=== PATIENT | female | born 1990 | race American Indian/Alaskan Native ===

== ENCOUNTER 2017-07-11 20:25 | Outpatient (CLI) | payer OTHER ==
[2017-07-11 23:44] VITALS: BP 127/70
[2017-07-12] MEDS ORDERED: VISTARIL PO PRN (02:13)
--- NOTE | 2017-07-12 02:38 | Ultrasound Report ---
FINAL REPORT PROCEDURE: US OB LIMITED TECHNIQUE: Real-time limited sonographic examination was performed for evaluation of size, position, heartbeat, fluid volume for each fetus with image documentation (1 or more fetuses). CPT 76916 HISTORY: MARTHA, well-being COMPARISON: No prior studies are available for comparison. FINDINGS: Amniotic fluid index is 6 centimeters. This is below the lower limits of normal. heart rate is 145 beats per minute. IMPRESSION: There is oligohydramnios.
--- NOTE | 2017-07-12 02:42 | Ultrasound Report ---
FINAL REPORT PROCEDURE: US OB BPP WO NON-STRESS TECHNIQUE: Real-time limited sonographic examination was performed for evaluation of size, position, heartbeat, fluid volume for each fetus with image documentation (1 or more fetuses). CPT 83777 HISTORY: MARTHA, well-being COMPARISON: No prior studies are available for comparison. FINDINGS: biophysical profile: breathing movements: 2. movements: 2. posterior and tone: 2. Qualitative amniotic fluid volume: 2. Total score: 8/8. heart rate 145 beats per minute. IMPRESSION: Normal biophysical profile
[2017-07-12] MEDS ORDERED: VISTARIL PO ONE (02:46)
== END 2017-07-12 02:54 | disposition home or self-care (01) ==
LOC: TRG 20:25
PROVIDERS: ATTEND Obstetrics & Gynecology
DX: O41.03X0 Oligohydramnios, third trimester, not applicable or unspecified (principal); O62.9 Abnormality of forces of labor, unspecified; O48.0 Post-term pregnancy; Z3A.40 40 weeks gestation of pregnancy
CPT/HCPCS: 76815; 76819; Q0177

== ENCOUNTER 2017-07-12 07:11 | Inpatient (IN) | payer OTHER ==
[2017-07-12] MEDS ORDERED: ePHEDrine SULFATE IV PRN (07:31)
[2017-07-12] MEDS ORDERED: XYLOCAINE 2% INFILTRATI ONE (07:31)
[2017-07-12] MEDS ORDERED: BRETHINE IVP PRN (07:31)
[2017-07-12] MEDS ORDERED: BRETHINE SUB-Q PRN (07:31)
[2017-07-12] MEDS ORDERED: MINERAL OIL ONE (07:32)
[2017-07-12] MEDS ORDERED: PITOCin/NS 20 UNIT/1000ML DRIP 20,000 MILLIUNITS/1,000 ML BAG IV ONE (07:32)
[2017-07-12 07:40] LABS: Hematocrit 42.1 % (30.3-42.9); Hemoglobin 13.7 gm/dl (10.1-14.3); Mean Corpuscular HGB Conc 33 % (30-34); Mean Corpuscular Volume 74 fl (79-97); Platelet Count 206 K/mm3 (140-440); Red Blood Count 5.69 M/mm3 (3.65-5.03); Red Cell Distribution Width 13.8 % (13.2-15.2)
[2017-07-12 07:44] LABS: Mean Corpuscular Hemoglobin 24 pg (28-32)
[2017-07-12] MEDS ORDERED: PITOCin/NS 30 UNIT/500ML 30 UNITS/500 ML BAG IV SCH (08:00)
--- NOTE | 2017-07-12 08:08 | History and Physical Report ---
History of Present Illness Date of examination: 07/12/17 Date of admission: 07/12/17 07:17 History of present illness: 27 yo EDC 07/12/17 @ 40.0 weeks gestation arrived to triage complete and went on to deliver a viable male infant. Was seen in triage earlier that evening and was 4cm without cervical change after 2 hours of observation. Voiced SROM at home around 0648. Denies vaginal bleeding. Reports good FM throughout. First trimester entry into care at 10 weeks. 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 GBS is unknown. 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 Social history: no significant social history, single - Obstetrical History Expected Date of Delivery: 07/10/17 Actual Gestation: 40 Week(s) 2 Day(s) : 1 Medications and Allergies Allergies Allergy/AdvReac Type Severity Reaction Status Date / Time No Known Allergies Allergy Verified 07/12/17 02:14 Active Meds: Active Medications Ephedrine Sulfate (Ephedrine Sulfate) 10 mg IV Q2M PRN PRN Reason: Hypotension Lactated Ringer's (Lactated Ringers) 1,000 mls @ 125 mls/hr IV DIRECT LATONYA Oxytocin/Sodium Chloride (Pitocin/Ns 20 Unit/1000ml Drip) 20 units in 1,000 mls @ 125 mls/hr IV DIRECT LATONYA Oxytocin/Sodium Chloride (Pitocin/Ns 30 Unit/500ml) 30 units in 500 mls @ 1 mls /hr IV TITR LATONYA; 1 MILLIUNITS/MIN PRN Reason: Protocol Lidocaine (Xylocaine 2%) 20 ml INFILTRATI ONCE ONE Stop: 07/12/17 07:32 Mineral Oil (Mineral Oil) 30 ml PO QHS PRN PRN Reason: Constipation Terbutaline Sulfate (Brethine) 0.25 mg SUB-Q ONCE PRN PRN Reason: Hyperstimulation/Hypertonicity Terbutaline Sulfate (Brethine) 0.25 mg IVP ONCE PRN PRN Reason: Hyperstimulation/Hypertonicity Review of Systems All systems: negative Genitourinary: normal appearance, vaginal bleeding (scant), leakage of fluid, contractions, no genital sores - Vital Signs Vital signs: Vital Signs Pulse BP 129 H 142/88 07/12/17 07:25 07/12/17 07:25 Temp Pulse Resp BP Pulse Ox 97.7 F 116 H 18 107/70 98 07/12/17 08:03 07/12/17 08:07 07/12/17 08:03 07/12/17 08:04 07/12/17 08:07 - Physical Exam Breasts: Positive: deferred Lungs: Positive: Normal air movement Abdomen: Positive: normal appearance, soft Vagina: Positive: normal moisture Uterus: Positive: normal size - Obstetrical FHR: category 1 Uterine Contraction Monitor Mode: External Cervical Dilatation: 10 Cervical Effacement Percentage: 100 station: +1 Uterine Contraction Pattern: Regular Uterine Contraction Intensity: Strong/Firm Results Result Diagrams: 07/12/17 07:15 Abnormal lab results 07/12/17 Range/Units 07:15 WBC 18.0 H (4.5-11.0) K/mm3 RBC 5.69 H (3.65-5.03) M/mm3 MCV 74 L (79-97) fl MCH 24 L (28-32) pg All other labs normal. Assessment and Plan A: IUP at 40.2 weeks gestation Unknown GBS S/P viable male P: Third Stage Labor Obtain records
--- NOTE | 2017-07-12 08:16 | Procedure Note ---
OB Delivery Note - Delivery Date of Delivery: 07/12/17 (7-11oz male @ 0747) Surgeon: KRISTEN SOLARES Estimated blood loss: 100cc - Vaginal Delivery presentation: vertex Delivery position: OA Intrapartum events: none Delivery induction: none Delivery monitor: external FHT, external uterine Route of delivery: Delivery cord: 3 umbilical vessels Episiotomy: none Delivery laceration: none Anesthesia: none - Infant A at 1 minute: 7 at 5 minutes: 9 Gender: Male (Bradycardia with pushing, left lateral lie and 02 in placed. Pushed for viable male. Stimulated to cry. Bulb suctioned. Placed skin to skin. Apgars 7/9 (off for tone). Cord blood collected. Spont. placenta. Pitocin infusing. Bleeding scant. FF 3 below, U, ML. Couple of skid nguyen noted on perineal inspection. Mother and stable.)
[2017-07-12] MEDS ORDERED: PITOCin/NS 20 UNIT/1000ML DRIP 20 UNITS/1,000 ML BAG IV SCH (10:00)
[2017-07-12] MEDS ORDERED: SODIUM CHLORIDE FLUSH SYRINGE 10 ML IV PRN (10:00)
[2017-07-12] MEDS ORDERED: BENADRYL PO PRN (10:00)
[2017-07-12] MEDS ORDERED: TYLENOL PO PRN (10:00)
[2017-07-12] MEDS ORDERED: TUCKS PAD TP PRN (10:00)
[2017-07-12] MEDS ORDERED: MINERAL OIL PO PRN (10:00)
[2017-07-12] MEDS ORDERED: LACTATED RINGERS 1,000 ML IV SCH (10:00)
[2017-07-12] MEDS ORDERED: DULCOLAX PR PRN (10:00)
[2017-07-12] MEDS ORDERED: LANSINOH TP PRN (10:00)
[2017-07-12] MEDS ORDERED: PHENERGAN PR PRN (10:30)
[2017-07-12] MEDS ORDERED: NORCO 5/325 PO PRN (10:30)
[2017-07-12] MEDS: MOTRIN PO SCH (14:00)
[2017-07-12] MEDS: PRENATAL VITAMIN PO SCH (14:00)
[2017-07-12 19:36] LABS: Hematocrit 35.6 % (30.3-42.9); Hemoglobin 11.2 gm/dl (10.1-14.3)
[2017-07-12] MEDS ORDERED: MILK OF MAGNESIA PO PRN (22:00)
[2017-07-13] MEDS ORDERED: BOOSTRIX IM ONE (06:00)
--- NOTE | 2017-07-13 07:47 | Progress Note ---
Assessment and Plan A: PPD# 1 s/p at term P: Routine care. Anticipate discharge tomorrow. Subjective - Subjective Date of service: 07/13/17 Principal diagnosis: s/p at term Interval history: No overnight events. Patient reports: appetite normal, voiding normally, pain well controlled, ambulating normally, no dizzy ambulation : doing well Objective - Vital Signs Latest vital signs: Vital Signs Temp Pulse Resp BP BP Pulse Ox 07/13/17 00:00 98.2 F 91 H 18 123/73 07/12/17 16:29 98.2 F 105 H 20 117/68 96 07/12/17 12:59 98.6 F 101 H 20 122/67 07/12/17 09:30 99.1 F 103 H 20 130/67 97 07/12/17 08:50 111 H 140/66 07/12/17 08:37 113 H 136/55 98 07/12/17 08:34 109 H 141/63 07/12/17 08:32 111 H 97 07/12/17 08:27 108 H 99 07/12/17 08:22 119 H 99 07/12/17 08:19 114 H 148/59 07/12/17 08:17 119 H 98 07/12/17 08:12 118 H 97 07/12/17 08:07 116 H 98 07/12/17 08:04 123 H 107/70 07/12/17 08:03 97.7 F 116 H 18 107/70 97 07/12/17 08:00 114 H 100 07/12/17 07:55 117 H 99 07/12/17 07:50 154 H 96 07/12/17 07:49 139 H 93 Intake and Output 07/12/17 07/13/17 07/13/17 22:59 06:59 14:59 Intake Total 240 Balance 240 Intake: Oral 240 Other: Total, Intake Amount 240 # Voids Void 1 - Exam Breasts: Present: deferred Cardiovascular: Present: Regular rate Lungs: Present: Clear to auscultation Abdomen: Present: soft Uterus: Present: fundal height at umbilicus Extremities: Present: normal
--- NOTE | 2017-07-13 07:51 | Discharge Summary ---
Providers - Providers Date of Admission: 07/12/17 07:17 Date of discharge: 07/14/17 Attending physician: FRANKIE SAMUEL Primary care physician: FRANKIE SAMUEL Hospitalization Reason for admission: active labor Delivery: Procedure details: please see delivery note. Episiotomy: none Laceration: none Other procedures: none complications: none Discharge diagnosis: IUP at term delivered [place] baby: male Hospital course: Pt was admitted in labor and delivered a viable male via . Her course was uncomplicated and met discharge criteria on PPD#2. She will follow up with Galina Chong in 4 weeks. Condition at discharge: Stable Disposition: DC-01 TO HOME OR SELFCARE - Discharge Diagnoses (1) Term of male Status: Acute Plan - Discharge Medications Prescriptions: HYDROcodone/APAP 5-325 [[place] 5/325] 1 each PO Q6HR PRN #20 tablet PRN Reason: Pain Ibuprofen [Motrin] 800 mg PO Q8HR PRN #30 tablet PRN Reason: Pain - Provider Discharge Summary Activity: routine, no sex for 6 weeks, no heavy lifting 4 weeks, no strenuous exercise Diet: routine Instructions: routine Additional instructions: [] Smoking cessation referral if applicable(refer to patient education folder for contact #) [] Refer to [facility]'s [facility] Booklet Call your doctor immediately for: * Fever > 100.5 * Heavy vaginal bleeding ( >1 pad per hour) * Severe persistent headache * Shortness of breath * Reddened, hot, painful area to leg or breast * Drainage or odor from incision. * Keep incision clean and dry at all times and follow doctor's instructions regarding bathing/showering - Follow up plan Follow up: GALINA CHONG CNM [Advanced Practice Nurse] - 08/09/17 (please schedule appt )
[2017-07-13] MEDS ORDERED: M-M-R II VACCINE SUB-Q ONE (11:00)
[2017-07-13] MEDS: PRENATAL VITAMIN PO SCH (12:30)
[2017-07-13] MEDS: MOTRIN PO SCH ×4 (12:30→23:53)
[2017-07-14] MEDS: MOTRIN PO SCH (05:42)
[2017-07-14 15:34] VITALS: BP 126/82
== END 2017-07-14 15:05 | disposition home or self-care (01) | DRG 775 ==
LOC: TRG 07:11 → LD 07:17 → OB 09:23
PROVIDERS: ADMIT Obstetrics & Gynecology; ATTEND Obstetrics & Gynecology
PROC: 10E0XZZ Delivery of Products of Conception, External Approach (ICD-10-PCS; principal; 2017-07-12)
PROC: 30233S1 Transfusion of Nonautologous Globulin into Peripheral Vein, Percutaneous Approach (ICD-10-PCS; 2017-07-13)
PROC: 3E0234Z Introduction of Serum, Toxoid and Vaccine into Muscle, Percutaneous Approach (ICD-10-PCS; 2017-07-13)
DX: O76 Abnormality in fetal heart rate and rhythm complicating labor and delivery (principal); Z37.0 Single live birth; Z3A.40 40 weeks gestation of pregnancy; Z23 Encounter for immunization
CPT/HCPCS: 36415; 85014; 85018; 85027; 85461; 86592; 86850; 86900; 86901; 99211; G0463; J2590; J2790